=== PATIENT | male | born 1940 | race Caucasian/White ===

== ENCOUNTER 2016-08-25 09:36 | Day surgery (SDC) | payer MEDICARE, OTHER ==
[~2016-08-25 09:36] MED LIST: BUPIVACAINE HCL 0.75% INJ/PF (7.5 MG/1 ML) 10 ML SDV OD PRN; EPINEPHRINE INJ/PF 1 MG/1 ML AMPULE ONE; KETOROLAC TROMETHAMINE 0.45% 4 DROP/0.4 ML DROPERETTE OD PRN; LIDOCAINE 4% INJ/PF (40 MG/ML) 5 ML AMPUL OD PRN
[2016-08-25] MEDS: CYCLOPENTOLATE 0.2%/PHENYLEPHRINE 1% OPH SOLN 2 ML OD PRN ×3 (10:05→10:30)
[2016-08-25] MEDS: TROPICAMIDE 1% OPH SOLN 3 ML OD PRN ×3 (10:05→10:30)
[2016-08-25] MEDS: BESIFLOXACIN HCL 0.6% OPH SUSP 5 ML BOTTLE OD PRN ×4 (10:06→11:23)
[2016-08-25] MEDS: TETRACAINE HCL 0.5% OPH SOLN 0.6 ML DROPERETTE OD PRN ×2 (10:07→10:32)
[2016-08-25] MEDS ORDERED: MIDAZOLAM 2 MG/2 ML INJ ONE (10:26)
[2016-08-25] MEDS ORDERED: FENTANYL CITRATE INJ/PF 100 MCG/2 ML AMPUL ONE (10:26)
[2016-08-25] MEDS: CHONDR SU A NA/HYALUR INTRAOC KIT (SURGICARE) ONE ×2 (11:15)
--- NOTE | 2016-08-25 11:43 | [facility] OPERATIVE REPORT E ---
[facility] Operative Report NAME: ZEESHAN AMATO AGE: 76Y DATE OF SURGERY: 08/25/2016 ROOM: PREOPERATIVE DIAGNOSIS: Cataract, right eye. POSTOPERATIVE DIAGNOSIS: Cataract, right eye. PROCEDURE PERFORMED: Phacoemulsification with toric intraocular lens implant, right eye. SURGEON: AMITA DAVIDSON M.D. ANESTHESIA: Topical with MAC. INDICATIONS FOR SURGERY: Difficulty driving at night. Best corrected visual acuity 20/40. DESCRIPTION OF PROCEDURE: The patient was brought to the operating room and placed in a seated position. Under topical anesthesia, the 0, 180, and 270 degree axes of the eye were marked using a marking level. The patient was placed in a reclining position and topical anesthesia was administered. This consisted of 4% lidocaine mixed with 0.75% Marcaine in a 1:1 ratio. A 2 x 1 cm pledget was placed in the superior fornix. A 1 x 1 cm pledget was placed in the inferior fornix. The eye was patched shut for 5 minutes. The patch and pledgets were removed. The eye was sterilely prepped and draped in the usual manner. Lid speculum was placed in the eye, and 4-0 black silk sutures were placed around the superior and the inferior rectus muscles to be used as traction. A conjunctival peritomy was made at the 135-degree axis. Hemostasis was obtained with bipolar cautery. A posterior limbal groove was created using a crescent knife and dissected anteriorly towards the cornea. A sharp point blade was used to create a paracentesis site at the 2 o'clock position. A 2.4 mm keratome was used to enter the anterior chamber through the groove. Viscoelastic was injected into the anterior chamber. An anterior capsulotomy was performed using Utrata forceps in a capsulorrhexis fashion. Hydrodissection and hydrodelineation were performed. Phacoemulsification was performed in [id number]-[id number]-[id number] technique. A total of 56 seconds of total phaco time was used. Following this, the I/A unit was used to remove residual cortex. Viscoelastic was injected into the capsular bag. Using the previously marked sites as reference, the 4-degree axis was marked on the eye. Intraocular lens Model SN6AT5, 18.5 diopters, serial number [id number] was placed in the eye and rotated within 10 degrees of the final axis. The I/A unit was used to remove residual viscoelastic. The lens was rotated to the 4-degree axis and centered nicely. The wound was seen to be watertight under high and low pressure, and no sutures were placed. The 4-0 black silk sutures and lid speculum were removed. The eye was shielded after Besivance drops were placed. The patient tolerated the procedure well and was sent to the recovery room in good condition. DICTATING PHYSICIAN: AMITA DAVIDSON M.D. [id number] PHY#: [id number] ID: [id number] JOB#: [id number] ACCT: [id number] cc:AMITA DAVIDSON M.D. >
--- NOTE | 2016-08-25 11:43 | [facility] DISCHARGE SUMMARY E ---
[facility] Discharge Summary NAME: ZEESHAN AMATO AGE: 76Y ADMITTED: 08/25/2016 DISCHARGED: 08/25/2016 HOSPITAL COURSE: The patient is a 76-year-old gentleman who underwent cataract extraction with toric intraocular lens implant, right eye, on 08/25/2016. He will be discharged to home. He was instructed to resume preoperative medications, take Tylenol as needed for discomfort, to keep his eye shielded, to use Besivance, Durezol, and Ilevro at 3 p.m. and 8 p.m., and to follow up in my office in 1 day. DICTATING PHYSICIAN: AMITA DAVIDSON M.D. [id number] PHY#: [id number] ID: [id number] JOB#: [id number] ACCT: [id number] cc:AMITA DAVIDSON M.D. >
== END 2016-08-25 12:16 | disposition home or self-care (01) ==
LOC: SC 09:36
PROVIDERS: ATTEND Ophthalmology
PROC: 08RJ3JZ Replacement of Right Lens with Synthetic Substitute, Percutaneous Approach (ICD-10-PCS; principal; 2016-08-25 11:00)
DX: H25.813 Combined forms of age-related cataract, bilateral (principal); H40.1231 Low-tension glaucoma, bilateral, mild stage; H04.123 Dry eye syndrome of bilateral lacrimal glands; H52.4 Presbyopia; I10 Essential (primary) hypertension; K21.9 Gastro-esophageal reflux disease without esophagitis; Z79.899 Other long term (current) drug therapy
CPT/HCPCS: 66984; V2632; J2250; J3490 ×3; A9270; J0171; J3010; 142

== ENCOUNTER 2016-09-15 09:35 | Day surgery (SDC) | payer MEDICARE, OTHER ==
[~2016-09-15 09:35] MED LIST changes: -BUPIVACAINE HCL 0.75% INJ/PF (7.5 MG/1 ML) 10 ML SDV OD PRN; +BUPIVACAINE HCL 0.75% INJ/PF (7.5 MG/1 ML) 10 ML SDV OS PRN; -EPINEPHRINE INJ/PF 1 MG/1 ML AMPULE ONE; -KETOROLAC TROMETHAMINE 0.45% 4 DROP/0.4 ML DROPERETTE OD PRN; +KETOROLAC TROMETHAMINE 0.45% 4 DROP/0.4 ML DROPERETTE OS PRN; -LIDOCAINE 4% INJ/PF (40 MG/ML) 5 ML AMPUL OD PRN; +LIDOCAINE 4% INJ/PF (40 MG/ML) 5 ML AMPUL OS PRN
[2016-09-15] MEDS: TROPICAMIDE 1% OPH SOLN 3 ML OS PRN ×3 (10:01→10:25)
[2016-09-15] MEDS: CYCLOPENTOLATE 0.2%/PHENYLEPHRINE 1% OPH SOLN 2 ML OS PRN ×3 (10:02→10:26)
[2016-09-15] MEDS: BESIFLOXACIN HCL 0.6% OPH SUSP 5 ML BOTTLE OS PRN ×3 (10:03→11:26)
[2016-09-15] MEDS: TETRACAINE HCL 0.5% OPH SOLN 0.6 ML DROPERETTE OS PRN ×2 (10:05→10:28)
[2016-09-15] MEDS ORDERED: EPINEPHRINE INJ/PF 1 MG/1 ML AMPULE ONE (10:14)
[2016-09-15] MEDS ORDERED: CHONDR SU A NA/HYALUR INTRAOC KIT (SURGICARE) ONE (10:14)
[2016-09-15] MEDS ORDERED: MIDAZOLAM 2 MG/2 ML INJ ONE (10:22)
[2016-09-15] MEDS ORDERED: BRIMONIDINE TARTRATE 0.2% OPH SOLN 5 ML ONE (11:39)
--- NOTE | 2016-09-15 11:45 | [facility] DISCHARGE SUMMARY E ---
[facility] Discharge Summary NAME: ZEESHAN AMATO AGE: 76Y ADMITTED: 09/15/2016 DISCHARGED: 09/15/2016 FINAL DIAGNOSES: 1. Cataract, left eye. 2. Astigmatism, left eye. HOSPITAL COURSE: The patient underwent uneventful cataract extraction with toric intraocular lens implant, left eye, on 09/15/2016. He will be discharged to home. He was instructed to resume preoperative medications, to take Tylenol as needed for discomfort, to keep his eye shielded, to use Besivance, Durezol and Ilevro at 3 p.m. and 8 p.m., and to follow up in my office in 1 day. DICTATING PHYSICIAN: AMITA DAVIDSON M.D. [id number] PHY#: [id number] ID: [id number] JOB#: [id number] ACCT: [id number] cc:AMITA DAVIDSON M.D. > MTDD
--- NOTE | 2016-09-15 11:45 | [facility] OPERATIVE REPORT E ---
[facility] Operative Report NAME: ZEESHAN AMATO AGE: 76Y DATE OF SURGERY: 09/15/2016 ROOM: PREOPERATIVE DIAGNOSES: 1. Cataract, left eye. 2. Stigmatism, left eye. POSTOPERATIVE DIAGNOSES: 1. Cataract, left eye. 2. Astigmatism, left eye. PROCEDURE PERFORMED: Phacoemulsification with Toric posterior chamber intraocular lens, left eye. SURGEON: AMITA DAVIDSON M.D. ANESTHESIA: Topical with MAC. INDICATIONS FOR SURGERY: Difficulty with glare with driving. Best corrected visual acuity 20/40. PROCEDURE: The patient was taken to the Operating Room and placed in a seated position. The 0, 270 and 180 degree axis were marked with a marking level. The patient was placed in supine position and topical anesthesia was administered. This consisted of instrument wipe pledgets soaked in a solution of 4% Xylocaine mixed with 0.75% Marcaine in a 1:1 ratio. A 2 x 1 cm pledget was placed in the superior fornix. A 1 x 1 cm pledget was placed in the inferior fornix. The eye was patched shut for 5 minutes. The eye was sterilely prepped and draped in the usual manner. A lid speculum was placed in the eye and 4-0 black silk sutures were placed around the superior and the inferior rectus muscles to be used as traction. A conjunctival peritomy was made at the 30-degree axis. Hemostasis was obtained with bipolar cautery. A posterior limbal groove was created using a crescent knife and dissected anteriorly towards the cornea. A sharp point blade was used to create a paracentesis site at the 5 o'clock position. A 2.4-mm keratome was used to enter the anterior chamber through the groove. Viscoelastic was injected into the anterior chamber. An anterior capsulotomy was performed using Utrata forceps in a capsulorrhexis fashion. Hydrodissection and hydrodelineation were performed. Phacoemulsification was performed in [id number]-[id number] technique. A total of 59 seconds total phaco time was used. Following this, the I/A unit was used to remove residual cortex. Viscoelastic was placed in the capsular bag. Intraocular lens model SN6AT6, 19.0 diopters, serial number [id number], was injected in the eye and placed within 10 degrees of the final axis. The axis of 172 was marked on the eye prior to inserting the lens. The I/A unit was used to remove residual viscoelastic. The lens was rotated to 172 degree axis and centered nicely. The wound was seen to be watertight under high and low pressure, and no sutures were placed. The 4-0 black silk sutures and lid speculum were removed. The eye was shielded after Besivance drops were placed. The patient tolerated the procedure well and was sent to Recovery Room in good condition. DICTATING PHYSICIAN: AMITA DAVIDSON M.D. [id number] PHY#: [id number] ID: [id number] JOB#: [id number] ACCT: [id number] cc:AMITA DAVIDSON M.D. > MTDD
== END 2016-09-15 12:15 | disposition home or self-care (01) ==
LOC: SC 09:35
PROVIDERS: ATTEND Ophthalmology
PROC: 08RK3JZ Replacement of Left Lens with Synthetic Substitute, Percutaneous Approach (ICD-10-PCS; principal; 2016-09-15 11:00)
DX: H25.812 Combined forms of age-related cataract, left eye (principal); Z96.1 Presence of intraocular lens; I10 Essential (primary) hypertension; K21.9 Gastro-esophageal reflux disease without esophagitis; Z79.899 Other long term (current) drug therapy
CPT/HCPCS: 66984; V2787; J2250; J3490 ×4; A9270; J0171; 142